=== PATIENT | female | born 1990 | race Caucasian/White ===

== ENCOUNTER 2018-02-04 10:24 | Outpatient (REF) | payer MEDICAID, SELFPAY ==
[2018-02-04 21:37] LABS: FREE T4 0.73 ng/dL (0.76-1.46); TSH 2.32 uIU/mL (0.358-3.74)
== END 2018-02-04 10:44 ==
LOC: NCHCN 10:24
PROVIDERS: PCP Internal Medicine; Visit Provider Family Medicine
DX: E03.9 Hypothyroidism, unspecified (principal); Z33.1 Pregnant state, incidental
CPT/HCPCS: 84439; 84443

== ENCOUNTER 2018-09-23 10:15 | Outpatient (REF) | payer MEDICAID, SELFPAY ==
[2018-09-23 21:17] LABS: HGB 12.4 g/dL (12.0-15.5); Mean Corp. HGB Concentration 32.6 g/dL (32.0-36.0); Mean Corpuscular Hemoglobin 28.4 pg (27.0-33.0); Mean Platelet Volume 9.5 fL (8.0-11.0); Platelet Count 342 x1000/uL (130-400); RBC 4.37 m/cumm (4.00-5.20); RBC Distribution Width 14.1 % (11.7-14.6)
[2018-09-23 21:43] LABS: Anion Gap 10.6 mmol/L (3-11); BUN 8 mg/dL (7-18); CO2 26.4 mmol/L (21.0-32.0); CREATININE 0.86 mg/dL (0.55-1.02); Chloride 104 mmol/L (98-107); Glucose 67 mg/dL (70-100); Potassium 3.9 mmol/L (3.5-5.1); Sodium 141 mmol/L (136-145); TSH 2.21 uIU/mL (0.36-3.74)
[2018-09-26 12:22] LABS: Vitamin D 25 Total 42.2 ng/ml (30-100)
== END 2018-09-23 10:35 ==
LOC: NCHCN 10:15
PROVIDERS: PCP Family Medicine; Visit Provider Family Medicine
DX: E03.9 Hypothyroidism, unspecified (principal); R53.83 Other fatigue
CPT/HCPCS: 80048; 82306; 85027; 84443

== ENCOUNTER 2020-07-26 09:26 | Outpatient (REF) | payer MEDICAID, SELFPAY ==
[2020-07-26 13:48] LABS: HCT 36.6 % (36.0-46.0); HGB 11.9 g/dL (11.2-15.7); MCH 29.1 pg (27.0-33.0); MCHC 32.5 % (32.0-36.0); MCV 89.5 fL (80-95); MPV 9.5 fL (8.0-11.0); Platelet Count 298 10^3/uL (130-400); RBC 4.09 10^6/uL (3.93-5.22); RDW 12.4 % (11.7-14.6); RDW-SD 40.4 fL; WBC 7.47 10^3/uL (4.4-10.8)
[2020-07-26 14:16] LABS: Calculated LDL 108 mg/dL (<100); Cholesterol 177 mg/dL (<200); HDL Cholesterol 57 mg/dL (40-60); TSH 1.35 uIU/mL (0.36-3.74); Triglyceride 62 mg/dL (<150)
== END 2020-07-26 09:27 | disposition home or self-care (01) ==
LOC: NCHCN 09:26
PROVIDERS: PCP Family Medicine; Visit Provider Family Medicine
DX: E03.9 Hypothyroidism, unspecified (principal); R53.83 Other fatigue
CPT/HCPCS: 80061; 85027; 84443

== ENCOUNTER 2021-08-19 19:39 | Outpatient (REF) | payer MEDICAID, SELFPAY ==
[2021-08-19 14:35] LABS: Abs Immature Grans 0.02 10^3/uL (0.0-0.06); HCT 35.8 % (36.0-46.0); HGB 11.9 g/dL (11.2-15.7); MCH 29.2 pg (27.0-33.0); MCHC 33.2 % (32.0-36.0); MCV 88 fL (80-95); MPV 9.4 fL (8.0-11.0); Platelet Count 310 10^3/uL (130-400); RBC 4.07 10^6/uL (3.93-5.22); RDW 13.1 % (11.7-14.6); RDW-SD 42.4 fL; WBC 6.38 10^3/uL (4.4-10.8)
[2021-08-19 15:12] LABS: Absolute Eosinophil Count 0.06 10^3/uL (0.0-0.7); Absolute Lymphocyte Count 1.28 10^3/uL (1.2-3.4); Absolute Monocyte Count 0.57 10^3/uL (0.1-0.8); Absolute Neutrophil Count 4.47 10^3/uL (1.2-6.7); Atypical Lymphocytes % 2; Diff Comment Manual Differential; RBC Morphology Normal
== END 2021-08-19 19:40 | disposition home or self-care (01) ==
LOC: NCHCN 19:39
PROVIDERS: PCP Family Medicine; Visit Provider Nurse Practitioner Family
DX: R22.0 Localized swelling, mass and lump, head (principal)
CPT/HCPCS: 85025

== ENCOUNTER 2023-04-02 15:00 | Outpatient (REF) | payer MEDICAID, SELFPAY ==
--- OUTSIDE RECORDS SUMMARY | 2023-04-02 15:02 | XMS_ITS | CCD ---
Author Name Unknown Address [address] [place] [address] [phone] Organization Unknown Address [address] [place] [address] [phone] Care Team Providers Care Child And Family Counselor Name Role Phone ALONA RASHEED Attending Physician [phone] Vital Signs Unknown or Not Available. Allergies Allergy Code Allergy Type Reaction Status No Known Allergies 0 No known allergies Active Procedures Unknown or Not Available. History of Immunizations Unknown or Not Available. Problems Unknown or Not Available. Results TSH THYROID STIMULATING HORM ONE* - Collect Date/Time: 11/12/2022 08:49 Test Name Code Test Result Test Units Test Ref Rang e TSH 3014-8 1.500 uIU/mL L=0.360 H=3.74 0 Active Medications Unknown or Not Available. Medications Administered During Visit Unknown or Not Available. Encounters Encounter Diagnosis Diagnosis Code Start Date Hypothyroidism [id number] 11/12/2022 Social History Smoking Status Code Start Date End Date Current every day smoker [id number] Patient Decision Aids Unknown or Not Available. Discharge Instructions You were admitted to [facility] on 11/12/2022 08:28 with a principal diagnosis of Hypothyroidism, unspecified You had the following tests done:TSH THYROID STIMULATING HORMONE* You were discharged from [facility] on 11/12/2022 08:28 Should you have any questions prior to discharge, please contact a member of your healthcare team. If you have left the hospital and have any questions, please contact your primary care physician. Chief Complaint and Reason For Visit Unknown or Not Available. Function Status Unknown or Not Available. Plan of Care Unknown or Not Available. Referral/Transition of Care Unknown or Not Available.
--- OUTSIDE RECORDS SUMMARY | 2023-04-02 15:02 | XMS_ITS | CCD ---
Author Name Unknown Address [address] [place] [address] [phone] Organization Unknown Address [address] [place] [address] [phone] Care Team Providers Care Air Tester Name Role Phone GENESIS SUAREZ Attending Physician [phone] Vital Signs Unknown or Not Available. Allergies Allergy Code Allergy Type Reaction Status No Known Allergies 0 No known allergies Active Procedures Unknown or Not Available. History of Immunizations Unknown or Not Available. Problems Unknown or Not Available. Results C REACTIVE PROTEIN HIGH SENS ITIVITY* - Collect Date/Time: 09/05/2021 10:25 Test Name Code Test Result Test Units Test Ref Rang e CRP-HIGH SENS. 02487-9 0.83 mg/L L=0.00 H=3 .00 CRP-HIGH SENS 24039-8 0.08 mg/dL L=0.00 H=0. 30 COMPREHENSIVE METABOLIC PANE L (CMP) - Collect Date/Time: 09/05/2021 10:25 Test Name Code Test Result Test Units Test Ref Rang e GLUCOSE 2345-7 78 mg/dL L=70 H=116 BUN 3094-0 9 mg/dL L=6 H=25 CREATININE 2160-0 0.71 mg/dL L=0.51 H=0.95 SODIUM SERUM 2951-2 139 mmol/L L=136 H=145 POTASSIUM SERUM 2823-3 3.7 mmol/L L=3.4 H=5 .2 CHLORIDE SERUM 2075-0 104 mmol/L L=96 H=110 CARBON DIOXIDE (CO2) 2028-9 26 mmol/L L=22 H=34 ANION GAP 15130-1 8.9 mmol/L CALCIUM SERUM 50842-9 8.7 mg/dL L=8.2 H=10. 2 BILIRUBIN TOTAL 1975-2 0.4 mg/dL L=0.0 H=1 .3 ALK. PHOS. 6768-6 71 U/L L=46 H=116 SGOT (AST) 1920-8 16 U/L L=15 H=37 SGPT (ALT) 1742-6 16 U/L L=12 H=78 TOTAL PROTEIN 2885-2 7.8 gm/dL L=6.0 H=8.0 ALBUMIN 1751-7 4.2 gm/dL L=3.4 H=5.0 AGE 31 years eGFR (non-Afr.Amer.) 16777-8 96 mL/min eGFR (Afr-Latvian) 71368-1 116 mL/min THYROID TESTING CASCADE* - C ollect Date/Time: 09/05/2021 10:25 Test Name Code Test Result Test Units Test Ref Rang e TSH. 3014-8 0.659 uIU/mL L=0.360 H=3.74 0 CBC W/ DIFFERENTIAL* - Colle ct Date/Time: 09/05/2021 10:25 Test Name Code Test Result Test Units Test Ref Rang e WBC 6690-2 8.69 th/cmm L=5.00 H=10.00 NEUT % 63.5 % L=40.0 H=80.0 LYMPH % 27.4 % L=10.0 H=50.0 MONO % 78589-8 7.4 % L=2.0 H=12.0 EOS % 0.9 % L=0.0 H=8.0 BASO % 0.5 % L=0.0 H=3.0 IG % 2514-8 0.3 % L=0.0 H=1.1 NRBC % 19874-0 0.0 % L=0.0 H=0.0 NEUT abs count 751-8 5.5 th/cmm L=1.6 H=8. 4 LYMPH abs count 731-0 2.4 th/cmm L=1.5 H=4 .0 MONO abs count 742-7 0.6 th/cmm L=0.2 H=1. 0 EOS abs count 711-2 0.1 th/cmm L=0.0 H=0.5 BASO abs count 704-7 0.0 th/cmm L=0.0 H=0. 2 IG abs count 55496-6 0.0 th/cmm L=0.0 H=0.1 NRBC abs count 53887-2 0.0 mil/cmm L=0.0 H=0. 0 RBC 789-8 4.32 mil/cmm L=3.90 H=5.40 HEMOGLOBIN 718-7 12.6 gm/dL L=12.0 H=16.0 HEMATOCRIT 4544-3 39 % L=37 H=47 MCV 787-2 91 fL L=82 H=92 MCH 785-6 29.2 pg L=27.0 H=31.0 MCHC 786-4 32.1 % L=32.0 H=36.0 RDW-SD 788-0 43.7 fL L=39.0 H=49.0 PLATELET COUNT 777-3 351 th/cmm L=150 H=45 0 SED RATE* - Collect Date/Tate e: 09/05/2021 10:25 Test Name Code Test Result Test Units Test Ref Rang e SED. RATE 4537-7 5 mm/hr L=0 H=20 C4 COMPLEMENT* - Collect Wale e/Time: 09/05/2021 10:25 Test Name Code Test Result Test Units Test Ref Rang e C4 Complement 28 N/A 13-39 Active Medications Unknown or Not Available. Medications Administered During Visit Unknown or Not Available. Encounters Encounter Diagnosis Diagnosis Code Start Date Localized swelling of head [id number] 09/2021 Social History Smoking Status Code Start Date End Date Current every day smoker [id number] Patient Decision Aids Unknown or Not Available. Discharge Instructions You were admitted to [facility] on 09/05/2021 09:52 with a principal diagnosis of Localized swelling, mass and lump, head You had the following tests done:C REACTIVE PROTEIN HIGH SENSITIVITY*C4 COMPLEMENT*CBC W/ DIFFERENTIAL*COMPREHENSIVE METABOLIC PANEL (CMP)SED RATE*THYROID TESTING CASCADE* You were discharged from [facility] on 09/05/2021 09:52 Should you have any questions prior to [...]
[2023-04-03 15:45] LABS: Chlamydia Result Negative (Negative); GC Result Negative (Negative)
== END 2023-04-02 15:01 | disposition home or self-care (01) ==
LOC: NCHCN 15:00
PROVIDERS: PCP Family Medicine; Visit Provider Family Medicine
DX: R39.9 Unspecified symptoms and signs involving the genitourinary system (principal)
CPT/HCPCS: 87491; 87591; 87086; 87480; 87510; 87660